=== PATIENT | male | born 1980 ===

== ENCOUNTER 2020-05-02 14:21 | Outpatient (CLI) | payer OTHER ==
[~2020-05-02 14:21] MED LIST: NABUMETONE500 MG PO; NEXIUM20 MG/PACK PO; PERCOCET 5/3251 TAB PO
== END 2020-05-02 14:38 | disposition home or self-care (01) ==
LOC: RAD 14:21
PROVIDERS: ATTEND Pediatrics
DX: K45.8 Other specified abdominal hernia without obstruction or gangrene (principal); I10 Essential (primary) hypertension

== ENCOUNTER 2020-05-12 08:44 | Outpatient (CLI) | payer OTHER | END 2020-05-12 09:11 | disposition home or self-care (01) | LOC: TOM 08:44 | PROVIDERS: ATTEND Surgery | DX: K42.9 Umbilical hernia without obstruction or gangrene (principal); M62.89 Other specified disorders of muscle ==

== ENCOUNTER 2021-09-03 10:30 | Emergency (ER) | payer OTHER ==
[~2021-09-03] VITALS: Ht 180.3 cm; Wt 99.8 kg
[2021-09-03] MEDS ORDERED: CARVEDILOL ER40 MG PO (11:18)
[2021-09-03] MEDS ORDERED: COZAAR50 MG PO (11:18)
== END 2021-09-03 14:32 | disposition home or self-care (01) ==
LOC: ER 10:30
DX: M54.31 Sciatica, right side (principal)